=== PATIENT | female | born 1965 | race Caucasian/White ===

== ENCOUNTER → 2017-08-25 | Outpatient (CLI) | payer OTHER | END | disposition home or self-care (01) | LOC: GMAH 11:26 | PROVIDERS: ATTEND Family Medicine | DX: I20.8 Other forms of angina pectoris (principal) ==

== ENCOUNTER → 2017-09-29 | Outpatient (CLI) | payer OTHER ==
--- NOTE | 2017-10-01 05:02 | RAD ---
Procedure: XR CHEST 2 VIEWS Exam Date: 09/29/2017 Ordering Provider: ELODIA BOLDEN Clinical Indication: CAD Comparison: None Findings: Residuals of thoracic surgery. Cardiomediastinal silhouette: Unremarkable Pulmonary vasculature : Unremarkable Focal lung consolidation: None Pleural effusion: None Pneumothorax: None Bones and soft tissues: Nonacute Impression: 1. No acute abnormalities in the chest. Electronically signed by: Malcom Tamayo MD 10/01/2017 5:00 AM LEARNING OFFICER
== END ==
LOC: RAD 10:30
PROVIDERS: ATTEND Thoracic Surgery (Cardiothoracic Vascular Surgery)
DX: I25.110 Atherosclerotic heart disease of native coronary artery with unstable angina pectoris (principal)